=== PATIENT | male | born 1945 | race Hispanic/Latino ===

== ENCOUNTER 2022-10-07 17:01 | Inpatient (IN) | payer MEDICARE ==
[~2022-10-07] VITALS: Ht 157.5 cm; Wt 67.4 kg
[~2022-10-07 17:01] MED LIST: AVODART0.5 MG PO; BACLOFEN10 MG PO; DETROL LA4 MG PO; DICLOFENAC PO; FLOMAX0.4 MG PO; FOLIC ACID1 MG PO; LOSARTAN POTAS100 MG PO; NIFEDIPINE20 MG PO; SIMVASTATIN40 MG PO
[2022-10-07] MEDS ORDERED: METOPROLOL TARTRATE INJ 1 MG/ML VIAL ONE (17:42)
[2022-10-07 17:59] LABS: BASOPHILS # (AUTO) 0.1 (0.0-0.1); BASOPHILS % 0.5 % (0.0-1.0); EOSINOPHILS # (AUTO) 0.1 (0.0-0.4); EOSINOPHILS % 1.1 % (0.0-6.0); HEMATOCRIT 40.8 % (38.2-49.6); HEMOGLOBIN 13.8 g/dL (14.0-18.0); LYMPHOCYTES # (AUTO) 1.8 (1.0-3.2); LYMPHOCYTES % 17.1 % (18.0-39.1); MEAN CORPUSCULAR HEMOGLOBIN 31.8 pg (28-32); MEAN CORPUSCULAR HGB CONC 33.8 g/dL (31-35); MONOCYTES # (AUTO) 0.9 (0.2-0.8); MONOCYTES % 8.5 % (4.4-11.3); NEUTROPHILS # (AUTO) 7.5 (2.1-6.9); NEUTROPHILS % 72.3 % (38.7-80.0); PLATELET COUNT 237 x10e3/uL (140-360); RED BLOOD COUNT 4.34 x10e6/uL (4.3-5.7); RED CELL DISTRIBUTION WIDTH 11.9 % (11.7-14.4)
[2022-10-07] MEDS ORDERED: ENOXAPARIN SODIUM INJ 100 MG/ML SYR SC ONE (18:00)
[2022-10-07] MEDS ORDERED: METOPROLOL TARTRATE INJ 1 MG/ML VIAL IV ONE ×2 (18:00)
[2022-10-07 18:01] LABS: INR 1.05; PROTHROMBIN TIME 14.2 seconds (11.9-14.5)
[2022-10-07 18:02] LABS: PARTIAL THROMBOPLASTIN TIME 30.5 seconds (23.8-35.5)
[2022-10-07] MEDS ORDERED: AMIODARONE 900MG 500 ML IV ONE (18:06)
[2022-10-07 18:10] LABS: ANION GAP 15.7 mmol/L (8-16); CALCIUM 9.2 mg/dL (8.4-10.2); CREATININE, SERUM 1.42 mg/dL (0.72-1.25); MAGNESIUM 1.7 MG/DL (1.3-2.1); POTASSIUM 3.7 mmol/L (3.5-5.1)
[2022-10-07 18:11] LABS: ALBUMIN 3.6 g/dL (3.5-5.0); ALBUMIN/GLOBULIN RATIO 1.3 (0.8-2.0)
[2022-10-07] MEDS ORDERED: AMIODARONE HCL 150 MG/100 ML BAG IV ONE (18:15)
[2022-10-07] MEDS: AMIODARONE 900MG 500 ML IV SCH (18:15)
[2022-10-07] MEDS ORDERED: AMIODARONE 900MG 900 MG in Premix Bag 1 BAG IV SCH (18:15)
[2022-10-07] MEDS ORDERED: NITROGLYCERIN 0.4 MG SUBL SL PRN (18:30)
[2022-10-07] MEDS ORDERED: ONDANSETRON HCL INJ 2MG/ML 2ML 2 MG/ML VIAL IV PRN (18:30)
[2022-10-07] MEDS ORDERED: Morphine 2mg Syringe 2 MG/ML SYR IV PRN (18:30)
[2022-10-07] MEDS ORDERED: FENOFIBRATE145 M1 PO (18:56)
[2022-10-07] MEDS ORDERED: CARVEDILOL12.5 MG PO (18:56)
[2022-10-07] MEDS ORDERED: NIFEDIPINE ER30 MG (18:56)
[2022-10-07] MEDS ORDERED: tamsulosin (18:56)
[2022-10-07] MEDS ORDERED: OMEPRAZOLE40 MG (18:56)
[2022-10-07] MEDS ORDERED: LISINOPRIL20 MG PO (18:56)
[2022-10-07] MEDS ORDERED: METHOCARBAMOL500 MG (18:56)
[2022-10-07] MEDS ORDERED: FOLIC (18:56)
[2022-10-07 21:36] VITALS: BP 155/89
[2022-10-07 22:00] VITALS: BP 156/89
[2022-10-07 22:04] VITALS: BP 156/89
[2022-10-07 22:05] VITALS: BP 156/89
[2022-10-07 23:00] VITALS: BP 154/95
[2022-10-08] VITALS (55 sets, daily range): BP systolic 144–197; BP diastolic 93–147
[2022-10-08 00:47] LABS: CREATINE KINASE MB 1.3 ng/mL (0-5.0)
[2022-10-08 05:02] LABS: BASOPHILS # (AUTO) 0.1 (0.0-0.1); BASOPHILS % 0.9 % (0.0-1.0); EOSINOPHILS # (AUTO) 0.2 (0.0-0.4); HEMATOCRIT 39.8 % (38.2-49.6); HEMOGLOBIN 13.3 g/dL (14.0-18.0); LYMPHOCYTES # (AUTO) 2.4 (1.0-3.2); LYMPHOCYTES % 29.9 % (18.0-39.1); MEAN CORPUSCULAR HEMOGLOBIN 31.6 pg (28-32); MEAN CORPUSCULAR HGB CONC 33.4 g/dL (31-35); MEAN CORPUSCULAR VOLUME 94.5 fL (81-99); MONOCYTES # (AUTO) 0.7 (0.2-0.8); MONOCYTES % 8.6 % (4.4-11.3); NEUTROPHILS # (AUTO) 4.7 (2.1-6.9); NEUTROPHILS % 58.1 % (38.7-80.0); PLATELET COUNT 239 x10e3/uL (140-360); RED BLOOD COUNT 4.21 x10e6/uL (4.3-5.7)
[2022-10-08 05:19] LABS: ALBUMIN 3.3 g/dL (3.5-5.0); ALBUMIN/GLOBULIN RATIO 1.1 (0.8-2.0); ANION GAP 15.7 mmol/L (8-16); CHOL/HDL RATIO 3.4 (3.9-4.7); CREATININE, SERUM 1.31 mg/dL (0.72-1.25); POTASSIUM 3.7 mmol/L (3.5-5.1)
[2022-10-08 05:54] LABS: CREATINE KINASE MB 1.3 ng/mL (0-5.0)
[2022-10-08] MEDS: METOPROLOL TARTRATE 25 MG TAB PO SCH ×4 (08:46→21:06)
[2022-10-08] MEDS ORDERED: SIMETHICONE 80 MG CHEW PO PRN (11:00)
[2022-10-08] MEDS ORDERED: MELATONIN 3 MG TAB PO PRN (11:00)
[2022-10-08] MEDS ORDERED: DOCUSATE SODIUM 100 MG CAP PO PRN (11:00)
[2022-10-08] MEDS ORDERED: METOPROLOL TARTRATE INJ 1 MG/ML VIAL IV ONE (11:00)
[2022-10-08] MEDS ORDERED: ACETAMINOPHEN 325 MG TAB PO PRN (11:00)
[2022-10-08 11:21] LABS: CREATINE KINASE MB 1.3 ng/mL (0-5.0)
[2022-10-08] MEDS: AMIODARONE 900MG 500 ML IV SCH (12:03)
[2022-10-08] MEDS: FUROSEMIDE 40 MG TAB PO SCH (12:05)
[2022-10-08] MEDS ORDERED: SIMVASTATIN 40 MG TAB PO SCH (21:00)
[2022-10-09] VITALS (45 sets, daily range): BP systolic 145–188; BP diastolic 81–148
[2022-10-09] MEDS: AMIODARONE 900MG 500 ML IV SCH (01:02)
[2022-10-09] MEDS: METOPROLOL TARTRATE 25 MG TAB PO SCH (05:39)
[2022-10-09] MEDS: FUROSEMIDE 40 MG TAB PO SCH (09:22)
[2022-10-09] MEDS: TAMSULOSIN HCL 0.4 MG CAP PO SCH (09:22)
[2022-10-09] MEDS: PANTOPRAZOLE SOD 40 MG TABEC PO SCH (09:22)
[2022-10-09] MEDS: BACLOFEN 10 MG TAB PO SCH (09:22)
[2022-10-09] MEDS: DUTASTERIDE 0.5 MG CAP PO SCH (09:22)
[2022-10-09] MEDS: AMIODARONE HCL 200 MG TAB PO SCH ×2 (12:50→17:18)
[2022-10-09] MEDS: AMLODIPINE BESYLATE 5 MG TAB PO SCH (13:15)
[2022-10-09 14:33] LABS: ANION GAP 15.4 mmol/L (8-16); CALCIUM 9.1 mg/dL (8.4-10.2); CREATININE, SERUM 1.61 mg/dL (0.72-1.25); POTASSIUM 3.4 mmol/L (3.5-5.1)
[2022-10-09] MEDS: METOPROLOL TARTRATE 50 MG TAB PO SCH (17:18)
[2022-10-09] MEDS: ATORVASTATIN 20 MG TAB PO SCH (20:27)
[2022-10-10 06:20] VITALS: BP 170/96
[2022-10-10 08:50] VITALS: BP 146/78
[2022-10-10 09:00] VITALS: BP 146/78
[2022-10-10] MEDS: AMLODIPINE BESYLATE 5 MG TAB PO SCH (09:00)
[2022-10-10] MEDS: PANTOPRAZOLE SOD 40 MG TABEC PO SCH (09:00)
[2022-10-10] MEDS: TAMSULOSIN HCL 0.4 MG CAP PO SCH (09:00)
[2022-10-10] MEDS: FUROSEMIDE 40 MG TAB PO SCH (09:00)
[2022-10-10] MEDS: DUTASTERIDE 0.5 MG CAP PO SCH (09:00)
[2022-10-10] MEDS: AMIODARONE HCL 200 MG TAB PO SCH ×2 (09:00→17:42)
[2022-10-10] MEDS: METOPROLOL TARTRATE 50 MG TAB PO SCH ×2 (09:00→17:42)
[2022-10-10] MEDS: BACLOFEN 10 MG TAB PO SCH (09:00)
[2022-10-10] MEDS ORDERED: REGADENOSON 0.4 MG/5 ML SYR IV ONE (10:48)
[2022-10-10 16:59] LABS: ANION GAP 14.5 mmol/L (8-16); CALCIUM 9.5 mg/dL (8.4-10.2); CREATININE, SERUM 1.19 mg/dL (0.72-1.25); POTASSIUM 3.5 mmol/L (3.5-5.1)
[2022-10-10 17:03] VITALS: BP 174/92
[2022-10-10] MEDS: APIXABAN 5 MG TABLET PO SCH (17:42)
[2022-10-10 21:00] VITALS: BP 172/99
[2022-10-10] MEDS: DOXYCYCLINE HYCLATE TABLET 100 MG TAB PO SCH (21:05)
[2022-10-10] MEDS: ATORVASTATIN 20 MG TAB PO SCH (21:05)
[2022-10-10] MEDS ORDERED: METOPROLOL TARTRATE 50 MG TAB PO ONE (21:15)
[2022-10-10 22:17] VITALS: BP 172/99
[2022-10-11] VITALS: BP 129/81
[2022-10-11 04:20] VITALS: BP 128/88
[2022-10-11 07:45] VITALS: BP 162/86
[2022-10-11] MEDS: AMLODIPINE BESYLATE 5 MG TAB PO SCH (08:14)
[2022-10-11] MEDS: PANTOPRAZOLE SOD 40 MG TABEC PO SCH (08:14)
[2022-10-11] MEDS: DOXYCYCLINE HYCLATE TABLET 100 MG TAB PO SCH (08:14)
[2022-10-11] MEDS: TAMSULOSIN HCL 0.4 MG CAP PO SCH (08:14)
[2022-10-11] MEDS: BACLOFEN 10 MG TAB PO SCH (08:14)
[2022-10-11] MEDS: AMIODARONE HCL 200 MG TAB PO SCH (08:14)
[2022-10-11] MEDS: APIXABAN 5 MG TABLET PO SCH (08:15)
[2022-10-11] MEDS: FUROSEMIDE 40 MG TAB PO SCH (08:15)
[2022-10-11 09:00] VITALS: BP 166/82
[2022-10-11] MEDS ORDERED: METOPROLOL TARTRATE 50 MG TAB PO SCH (09:00)
[2022-10-11] MEDS ORDERED: ONDANSETRON HCL 4 MG ORAL DISINTEGRATING TAB PO PRN (09:45)
[2022-10-11] MEDS ORDERED: AMIODARONE HCL200 MG PO (10:34)
[2022-10-11] MEDS ORDERED: LIPITOR20 MG PO (10:34)
[2022-10-11] MEDS ORDERED: ELIQUIS5 MG PO (10:34)
[2022-10-11] MEDS ORDERED: METOPROLOL TART50 MG PO (10:34)
[2022-10-11] MEDS ORDERED: DOXYCYCLINE HY100 MG PO (10:35)
[2022-10-11] MEDS ORDERED: FUROSEMIDE40 MG PO (10:36)
== END 2022-10-11 11:24 | disposition home or self-care (01) | DRG 308 ==
LOC: ER 17:26 → ERHOLD 18:27 → ICU 21:43 → MED/SURG2 10-09 14:56
PROVIDERS: ADMIT Internal Medicine; ATTEND Internal Medicine
DX: I48.0 Paroxysmal atrial fibrillation (principal); I50.21 Acute systolic (congestive) heart failure; N17.9 Acute kidney failure, unspecified; I11.0 Hypertensive heart disease with heart failure; E78.5 Hyperlipidemia, unspecified; K21.9 Gastro-esophageal reflux disease without esophagitis; N40.0 Benign prostatic hyperplasia without lower urinary tract symptoms; Z20.822 Contact with and (suspected) exposure to COVID-19
CPT/HCPCS: 36415; 71045; 78452; 80048; 80053; 80061; 82044; 82550; 82553; 83735; 83880; 84443; 84484; 85025; 85610; 85730; 93005; 93017; 93306; 93308; 94799; 99252; 99284; A9502; J1650

== ENCOUNTER 2022-10-20 17:11 | Observation (INO) | payer MEDICARE ==
[~2022-10-20] VITALS: Ht 157.5 cm; Wt 67.1 kg
[~2022-10-20 17:11] MED LIST changes: +AMIODARONE HCL200 MG PO; +CARVEDILOL12.5 MG PO; +DOXYCYCLINE HY100 MG PO; +ELIQUIS5 MG PO; +FENOFIBRATE145 M1 PO; +FOLIC; +FUROSEMIDE40 MG PO; +LIPITOR20 MG PO; +LISINOPRIL20 MG PO; +METHOCARBAMOL500 MG; +METOPROLOL TART50 MG PO; +NIFEDIPINE ER30 MG PO; +OMEPRAZOLE40 MG PO; +tamsulosin
[2022-10-20] MEDS ORDERED: SODIUM CHLORIDE FLUSH 10 ML SYR IV PRN (17:30)
[2022-10-20 17:58] LABS: BASOPHILS # (AUTO) 0.1 (0.0-0.1); BASOPHILS % 0.7 % (0.0-1.0); EOSINOPHILS # (AUTO) 0.1 (0.0-0.4); HEMATOCRIT 44.7 % (38.2-49.6); HEMOGLOBIN 15.1 g/dL (14.0-18.0); LYMPHOCYTES # (AUTO) 1.2 (1.0-3.2); LYMPHOCYTES % 11.6 % (18.0-39.1); MEAN CORPUSCULAR HEMOGLOBIN 32.1 pg (28-32); MEAN CORPUSCULAR HGB CONC 33.8 g/dL (31-35); MEAN CORPUSCULAR VOLUME 95.1 fL (81-99); MONOCYTES # (AUTO) 0.7 (0.2-0.8); MONOCYTES % 6.2 % (4.4-11.3); NEUTROPHILS # (AUTO) 8.4 (2.1-6.9); NEUTROPHILS % 78.8 % (38.7-80.0); PLATELET COUNT 392 x10e3/uL (140-360); RED CELL DISTRIBUTION WIDTH 11.9 % (11.7-14.4)
[2022-10-20 18:16] LABS: ALANINE AMINOTRANSFERASE 11 IU/L (0-55); ALBUMIN/GLOBULIN RATIO 1.3 (0.8-2.0); ALKALINE PHOSPHATASE 79 IU/L (40-150); ANION GAP 15.8 mmol/L (8-16); BLOOD UREA NITROGEN 33 mg/dL (7-26); BUN/CREATININE RATIO 16 (6-25); CALCIUM 10.2 mg/dL (8.4-10.2); CARBON DIOXIDE 28 mmol/L (22-29); CHLORIDE 102 mmol/L (98-107); CREATININE, SERUM 2.03 mg/dL (0.72-1.25); GLUCOSE 128 mg/dL (74-118); POTASSIUM 3.8 mmol/L (3.5-5.1); SODIUM 142 mmol/L (136-145)
[2022-10-20] MEDS ORDERED: HYDRALAZINE HCL 20 MG/ML VIAL IV PRN (19:30)
[2022-10-20] MEDS ORDERED: ONDANSETRON HCL INJ 2MG/ML 2ML 2 MG/ML VIAL IV PRN (19:30)
[2022-10-20] MEDS ORDERED: SODIUM CHLORIDE 0.9% 1000ML 1,000 ML IV ONE (19:30)
[2022-10-20 21:03] VITALS: BP 158/75
[2022-10-20 21:10] VITALS: BP 158/75
[2022-10-20] MEDS ORDERED: OMEGA 3 FISH O1 EACH PO (21:45)
[2022-10-20 23:37] LABS: CREATINE KINASE 23 IU/L (30-200)
[2022-10-21] VITALS: BP 138/71
[2022-10-21 04:00] VITALS: BP 139/71
[2022-10-21 05:55] LABS: BASOPHILS % 0.5 % (0.0-1.0); EOSINOPHILS # (AUTO) 0.2 (0.0-0.4); EOSINOPHILS % 1.9 % (0.0-6.0); HEMATOCRIT 38.3 % (38.2-49.6); HEMOGLOBIN 13.2 g/dL (14.0-18.0); LYMPHOCYTES # (AUTO) 2.1 (1.0-3.2); LYMPHOCYTES % 25.3 % (18.0-39.1); MEAN CORPUSCULAR HEMOGLOBIN 31.5 pg (28-32); MEAN CORPUSCULAR HGB CONC 34.5 g/dL (31-35); MEAN CORPUSCULAR VOLUME 91.4 fL (81-99); MONOCYTES # (AUTO) 0.8 (0.2-0.8); MONOCYTES % 9.5 % (4.4-11.3); NEUTROPHILS # (AUTO) 5.1 (2.1-6.9); NEUTROPHILS % 62.6 % (38.7-80.0); PLATELET COUNT 337 x10e3/uL (140-360); RED BLOOD COUNT 4.19 x10e6/uL (4.3-5.7); RED CELL DISTRIBUTION WIDTH 11.9 % (11.7-14.4)
[2022-10-21 06:32] LABS: ALBUMIN 3.3 g/dL (3.5-5.0); ALBUMIN/GLOBULIN RATIO 1.2 (0.8-2.0); ANION GAP 12.1 mmol/L (8-16); CALCIUM 8.6 mg/dL (8.4-10.2); CREATININE, SERUM 1.45 mg/dL (0.72-1.25); POTASSIUM 3.1 mmol/L (3.5-5.1)
[2022-10-21 06:47] LABS: CREATINE KINASE 24 IU/L (30-200)
[2022-10-21 07:59] VITALS: BP 149/70
[2022-10-21 08:09] VITALS: BP 149/70
[2022-10-21] MEDS ORDERED: PANTOPRAZOLE SOD 40 MG TABEC PO PRN (09:15)
[2022-10-21] MEDS ORDERED: DOCUSATE SODIUM 100 MG CAP PO PRN (09:30)
[2022-10-21] MEDS ORDERED: ACETAMINOPHEN 325 MG TAB PO PRN (09:30)
[2022-10-21] MEDS ORDERED: MELATONIN 3 MG TAB PO PRN (09:30)
[2022-10-21] MEDS ORDERED: SIMETHICONE 80 MG CHEW PO PRN (09:30)
[2022-10-21] MEDS ORDERED: LISINOPRIL 20 MG TAB PO SCH (10:00)
[2022-10-21] MEDS ORDERED: FOLIC ACID 1 MG TAB PO SCH (10:00)
[2022-10-21] MEDS ORDERED: FENOFIBRATE 145 MG TAB PO SCH (10:00)
[2022-10-21 11:50] VITALS: BP 141/67
[2022-10-21] MEDS ORDERED: ONDANSETRON HCL 4 MG ORAL DISINTEGRATING TAB PO PRN (13:30)
[2022-10-21 15:52] VITALS: BP 147/75
[2022-10-21] MEDS ORDERED: POTASSIUM CHLORIDE 20 MEQ TAB CR PO ONE (16:00)
[2022-10-21] MEDS ORDERED: LOPRESSOR25 MG PO (16:41)
[2022-10-21] MEDS ORDERED: AMIODARONE HCL200 MG PO (16:41)
[2022-10-21] MEDS ORDERED: APIXABAN 5 MG TABLET PO SCH (17:00)
[2022-10-21] MEDS ORDERED: ATORVASTATIN 20 MG TAB PO SCH (21:00)
== END 2022-10-21 17:51 | disposition home or self-care (01) ==
LOC: ER 17:30 → ERHOLD 19:23 → MED/SURG3 21:07
PROVIDERS: ADMIT Internal Medicine; ATTEND Internal Medicine
DX: R00.1 Bradycardia, unspecified (principal); I48.0 Paroxysmal atrial fibrillation; I13.0 Hypertensive heart and chronic kidney disease with heart failure and stage 1 through stage 4 chronic kidney disease, or unspecified chronic kidney disease; N17.9 Acute kidney failure, unspecified; N18.30 Chronic kidney disease, stage 3 unspecified; I50.22 Chronic systolic (congestive) heart failure; E78.5 Hyperlipidemia, unspecified; K21.9 Gastro-esophageal reflux disease without esophagitis; N40.0 Benign prostatic hyperplasia without lower urinary tract symptoms; Z20.822 Contact with and (suspected) exposure to COVID-19; Z79.02 Long term (current) use of antithrombotics/antiplatelets; Z79.899 Other long term (current) drug therapy; Z82.49 Family history of ischemic heart disease and other diseases of the circulatory system
CPT/HCPCS: 0223U; 36415 ×2; 71045; 80053 ×2; 82550 ×2; 82553 ×2; 83880; 84484 ×2; 85025 ×2; 93005; 94760; 94799 ×2; 99284; G0378 ×2; J7030; J2405

== ENCOUNTER 2022-12-21 01:01 | Emergency (ER) | payer MEDICARE ==
[~2022-12-21] VITALS: Ht 157.5 cm; Wt 67.1 kg
[~2022-12-21 01:01] MED LIST changes: +LOPRESSOR25 MG PO; +OMEGA 3 FISH O1 EACH PO
[2022-12-21] MEDS ORDERED: Morphine 4mg INJECTION 4 MG/ML INJ IV STA (01:10)
[2022-12-21] MEDS ORDERED: ONDANSETRON HCL INJ 2MG/ML 2ML 2 MG/ML VIAL IV STA (01:10)
[2022-12-21 01:32] LABS: BASOPHILS # (AUTO) 0.1 (0.0-0.1); BASOPHILS % 0.3 % (0.0-1.0); EOSINOPHILS # (AUTO) 0.2 (0.0-0.4); EOSINOPHILS % 0.9 % (0.0-6.0); HEMOGLOBIN 13.5 g/dL (14.0-18.0); LYMPHOCYTES # (AUTO) 1.6 (1.0-3.2); LYMPHOCYTES % 10.2 % (18.0-39.1); MEAN CORPUSCULAR HGB CONC 34.6 g/dL (31-35); MEAN CORPUSCULAR VOLUME 89.4 fL (81-99); MONOCYTES # (AUTO) 0.9 (0.2-0.8); MONOCYTES % 5.5 % (4.4-11.3); NEUTROPHILS # (AUTO) 13.2 (2.1-6.9); NEUTROPHILS % 82.8 % (38.7-80.0); PLATELET COUNT 356 x10e3/uL (140-360); RED BLOOD COUNT 4.36 x10e6/uL (4.3-5.7); RED CELL DISTRIBUTION WIDTH 12.5 % (11.7-14.4)
[2022-12-21 01:58] LABS: ALBUMIN 4.2 g/dL (3.5-5.0); ALBUMIN/GLOBULIN RATIO 1.2 (0.8-2.0); ANION GAP 20.1 mmol/L (8-16); CREATININE, SERUM 1.67 mg/dL (0.72-1.25); POTASSIUM 4.1 mmol/L (3.5-5.1)
[2022-12-21 02:00] LABS: CALCIUM 9.9 mg/dL (8.4-10.2)
[2022-12-21] MEDS ORDERED: FENTANYL CITRATE/PF 100MCG/2 ML INJ IV STA (02:02)
[2022-12-21 02:13] LABS: AMPHETAMINES SCREEN,URINE NEGATIVE (NEGATIVE); BENZODIAZEPINES SCREEN,URINE NEGATIVE (NEGATIVE); PHENCYCLIDINE SCREEN,URINE NEGATIVE (NEGATIVE)
[2022-12-21] MEDS ORDERED: IOPAMIDOL 370 MG/ML 100 ML INFUS..BTL INJ ONE (02:23)
[2022-12-21 02:26] LABS: CLARITY,URINE CLOUDY (CLEAR); COLOR,URINE YELLOW (YELLOW); KETONES,URINE NEGATIVE (NEGATIVE); LEUKOCYTE ESTERASE ,URINE NEGATIVE (NEGATIVE); NITRITE,URINE NEGATIVE (NEGATIVE); PROTEIN,URINE DIPSTICK NEGATIVE (NEGATIVE); URINE UROBILINOGEN 0.2 mg/dL (0.2 - 1)
[2022-12-21 02:31] LABS: AMORPHOUS SEDIMENT,URINE MANY (FEW); BACTERIA,URINE MANY /HPF; EPITHELIAL CELLS,URINE RARE /LPF; RBC,URINE 0-5 /HPF (0-5); WBC,URINE (MAN) 0-5 /HPF (0-5)
[2022-12-21 04:15] VITALS: O2SAT 97
[2022-12-21] MEDS ORDERED: ASPIRIN 325 MG TAB PO STA (04:25)
[2022-12-21] MEDS ORDERED: ASPIRIN 325 MG TAB ONE (04:35)
[2022-12-21] MEDS ORDERED: SODIUM CHLORIDE 0.9% 1000ML 1,000 ML IV STA (05:19)
[2022-12-21] MEDS ORDERED: FENTANYL CITRATE/PF 100MCG/2 ML INJ IV ONE (05:45)
== END 2022-12-21 07:43 | disposition other institution (70) ==
LOC: ER 01:09
DX: R06.02 Shortness of breath (principal); R07.89 Other chest pain; N28.9 Disorder of kidney and ureter, unspecified; K80.20 Calculus of gallbladder without cholecystitis without obstruction; D72.829 Elevated white blood cell count, unspecified; K57.90 Diverticulosis of intestine, part unspecified, without perforation or abscess without bleeding; I10 Essential (primary) hypertension; I50.9 Heart failure, unspecified; E78.5 Hyperlipidemia, unspecified; I48.91 Unspecified atrial fibrillation; K21.9 Gastro-esophageal reflux disease without esophagitis; Z20.822 Contact with and (suspected) exposure to COVID-19; R94.31 Abnormal electrocardiogram [ECG] [EKG]
CPT/HCPCS: 36415; 71275; 74174; 80053; 80307; 81001; 82550; 83605; 83690; 83880; 84484; 85025; 85379; 87040; 99285; J2405; J2543; J3010; J7030; Q9967; U0002; J2270